=== PATIENT | female | born 1995 | race Caucasian/White ===

== ENCOUNTER 2020-08-25 16:12 | Emergency (ER) | payer MEDICAID ==
[~2020-08-25] VITALS: Ht 157.5 cm; Wt 83.9 kg
[2020-08-25 16:23] VITALS: Ht 157.5 cm; Wt 83.9 kg
[2020-08-25 17:51] VITALS: BP 132/93
== END 2020-08-25 17:51 | disposition home or self-care (01) ==
LOC: ED 16:12
DX: H16.202 Unspecified keratoconjunctivitis, left eye (principal)